=== PATIENT | female | born 1985 | race Two or more races ===

== ENCOUNTER 2018-03-28 09:04 | Emergency (ER) | payer MEDICAID ==
[~2018-03-28] VITALS: Ht 154.9 cm; Wt 56.2 kg
--- NOTE | 2018-03-28 09:06 | NUR ---
ED Nurse Note: Pt AAO x4, pale looking, fatigue due to heavy vaginal bleeding since 0700 this morning. Pt wet 4 pad completely. C/o dizziness since bleeding started, denied N/V. Abdominal cramp 2. VVS, remaining calm. Addendum: 03/28/18 at 1021 by [email or web address] ED Nurse Note: Pt AAO x4, 8 weeks , pale looking, fatigue due to heavy vaginal bleeding since 0700 this morning. Pt wet 4 pad completely with dark red blood and clotting. C/O dizziness since bleeding started, denied N/V. Abdominal cramp 04/30. VVS, remaining calm.
[2018-03-28 09:10] VITALS: BP 108/74
--- NOTE | 2018-03-28 09:45 | NUR ---
ED Nurse Note: Pt went down to US. Pt remains stable.
[2018-03-28 09:51] LABS: BASOPHILS % (AUTO) 1.4 % (0.0-2.0); EOSINOPHILS % (AUTO) 1.1 % (0.0-3.0); HEMATOCRIT 31.7 % (37.0-47.0); HEMOGLOBIN 11.1 G/DL (12.0-16.0); LYMPHOCYTES % (AUTO) 31.7 % (20.0-45.0); MEAN CORPUSCULAR VOLUME 95 FL (80-99); MONOCYTES % (AUTO) 4.3 % (1.0-10.0); NEUTROPHILS % (AUTO) 61.4 % (45.0-75.0); PLATELET COUNT 164 K/UL (150-450); RED BLOOD COUNT 3.33 M/UL (4.20-5.40); RED CELL DISTRIBUTION WIDTH 11.7 % (11.6-14.8); WHITE BLOOD COUNT 8.9 K/UL (4.8-10.8)
--- NOTE | 2018-03-28 09:58 | NUR ---
ED Nurse Note: Called [facility] for HCG result and Request for PHI form was filled out and signed by patient and it was faxed for request. waiting for the result to be faxed.
[2018-03-28 10:01] LABS: ANION GAP 12 mmol/L (5-15); BLOOD UREA NITROGEN 7 mg/dL (7-18); CALCIUM 8.8 MG/DL (8.5-10.1); CARBON DIOXIDE 19 MMOL/L (21-32); CHLORIDE 104 MMOL/L (98-107); CREATININE 0.6 MG/DL (0.55-1.30); POTASSIUM 4.4 MMOL/L (3.5-5.1); SODIUM 135 MMOL/L (136-145)
[2018-03-28 10:12] LABS: ALANINE AMINOTRANSFERASE 28 U/L (12-78); ALBUMIN 3.6 G/DL (3.4-5.0); ALBUMIN/GLOBULIN RATIO 1.1 (1.0-2.7); ALKALINE PHOSPHATASE 68 U/L (46-116); ASPARTATE AMINO TRANSFERASE 33 U/L (15-37); BILIRUBIN,DIRECT 0.2 MG/DL (0.0-0.3); BILIRUBIN,TOTAL 1.2 MG/DL (0.2-1.0)
--- NOTE | 2018-03-28 10:13 | NUR ---
ED Nurse Note: Received fax from [facility]. HCG level 8050 on 03/24/2018.
[2018-03-28 10:55] LABS: INR 1.1 (0.9-1.1)
[2018-03-28] MEDS ORDERED: Morphine Sulfate 4mg/ml Inj (IV/IM USE ONLY) ONE (10:56)
--- NOTE | 2018-03-28 10:56 | Diagnostic Imaging Report ---
Indication: Positive test. Vaginal bleeding. Quantitative beta-hCG pending Technique: Grayscale and duplex Doppler imaging of the pelvis performed utilizing a transabdominal scan and endovaginal scan. Comparison: None Findings: There is no IUP. There is heterogeneous material within the endocervical canal likely blood in a patient that is actively bleeding. There is no vascularity within the collection. Suggest follow-up. There is little to no free fluid. Both ovaries are seen and show dopplerable blood flow and appear normal. There is no adnexal mass identified. The uterus measures 13 x 5 x 7 cm. The right ovary is 2.8 x 2 x 2.5 cm. The left ovary is 2.8 x 1.9 x 2.6 cm. IMPRESSION: Lower uterine segment and endocervical blood noted. No IUP. Ectopic is not excludable although spontaneous or miscarriage is most likely. Correlate with serial quantitative beta-hCG and suggest ultrasound follow-up.
[2018-03-28 11:00] VITALS: BP 106/60
--- NOTE | 2018-03-28 11:00 | NUR ---
ED Nurse Note: Received verbal order for 4mg of morphine from Dr. Zuniga as she was doing pelvic exam. Pt was morning and was in pain. By the time the nurse override 4mg of morphine and brought to the room, pt stated that she no longer need the pain medication. Morphine was returned, witnessed by CN. Hailey
[2018-03-28] MEDS ORDERED: Morphine Sulfate 4mg/ml Inj (IV/IM USE ONLY) IVP ONE (11:15)
[2018-03-28 13:00] VITALS: BP 97/61
[2018-03-28 14:20] VITALS: BP 101/66
--- NOTE | 2018-03-28 14:23 | Emergency Room Report ---
History of Present Illness General Chief Complaint: Complications Source: Patient Present Illness Allergies: Coded Allergies: No Known Allergies (Unverified , 03/28/18) Patient History Last Menstrual Period: Jan 02 2018 Now: Yes : 1 Para: 0 Nursing Documentation-[facility] Past Medical History: No Stated History Physical Exam Vital Signs Date Time Temp Pulse Resp B/P (MAP) Pulse Ox O2 Delivery O2 Flow Rate FiO2 03/28/18 08:59 98.1 80 20 110/60 98 Room Air Medical Decision Making Diagnostic Impression: Primary Impression: Spontaneous miscarriage Laboratory Tests Test 03/28/18 09:30 03/28/18 10:40 White Blood Count 8.9 K/UL (4.8-10.8) Red Blood Count 3.33 M/UL (4.20-5.40) L Hemoglobin 11.1 G/DL (12.0-16.0) L Hematocrit 31.7 % (37.0-47.0) L Mean Corpuscular Volume 95 FL (80-99) Mean Corpuscular Hemoglobin 33.2 PG (27.0-31.0) H Mean Corpuscular Hemoglobin Concent 34.9 G/DL (32.0-36.0) Red Cell Distribution Width 11.7 % (11.6-14.8) Platelet Count 164 K/UL (150-450) Mean Platelet Volume 6.3 FL (6.5-10.1) L Neutrophils (%) (Auto) 61.4 % (45.0-75.0) Lymphocytes (%) (Auto) 31.7 % (20.0-45.0) Monocytes (%) (Auto) 4.3 % (1.0-10.0) Eosinophils (%) (Auto) 1.1 % (0.0-3.0) Basophils (%) (Auto) 1.4 % (0.0-2.0) Sodium Level 135 MMOL/L (136-145) L Potassium Level 4.4 MMOL/L (3.5-5.1) Chloride Level 104 MMOL/L (98-107) Carbon Dioxide Level 19 MMOL/L (21-32) L Anion Gap 12 mmol/L (5-15) Blood Urea Nitrogen 7 mg/dL (7-18) Creatinine 0.6 MG/DL (0.55-1.30) Estimate Glomerular Filtration Rate > 60 mL/min (>60) Glucose Level 118 MG/DL (74-106) H Calcium Level 8.8 MG/DL (8.5-10.1) Total Bilirubin 1.2 MG/DL (0.2-1.0) H Direct Bilirubin 0.2 MG/DL (0.0-0.3) Aspartate Amino Transferase (AST) 33 U/L (15-37) Alanine Aminotransferase (ALT) 28 U/L (12-78) Alkaline Phosphatase 68 U/L (46-116) Total Protein 7.0 G/DL (6.4-8.2) Albumin 3.6 G/DL (3.4-5.0) Globulin 3.4 g/dL Albumin/Globulin Ratio 1.1 (1.0-2.7) Human Chorionic Gonadotropin, Quant 3156 mIU/mL (1-6) H Prothrombin Time 11.2 SEC (9.30-11.50) Prothrombin Time INR 1.1 (0.9-1.1) PTT 21 SEC (23-33) L CT/MRI/US Diagnostic Results CT/MRI/US Diagnostic Results : Imaging Test Ordered: US pelvis Impression Lower uterine segment and endocervical blood noted. No IUP. Ectopic is not excludable although spontaneous or miscarriage is most likely. Correlate with serial quantitative beta-hCG and suggest ultrasound follow-up. Last Vital Signs Date Time Temp Pulse Resp B/P (MAP) Pulse Ox O2 Delivery O2 Flow Rate FiO2 03/28/18 08:59 98.1 80 20 110/60 98 Room Air Status: improved Disposition: HOME, SELF-CARE Referrals: NOT CHOSEN BRANDON/,REFERRING (PCP) Eloisa Myers DO Mar 28, 2018 14:23
[2018-03-28] MEDS ORDERED: IBUPROFEN800 MG ORAL (14:26)
--- NOTE | 2018-03-28 14:42 | NUR ---
ED Nurse Note: Pt reported unable to void x3. Reported to MD and MD said it is ok for the pt to go home without providing urine.
[2018-03-28 14:45] VITALS: BP 112/74
--- NOTE | 2018-03-28 14:45 | NUR ---
ED Nurse Note: Pt was cleared to be discharged by ERMD. Pt received discharge instruction and prescription with her . They both verbalized understanding. VSS, pt denied pain, ambulated to be discharged with her . ID band and IV removed.
== END 2018-03-28 15:00 | disposition home or self-care (01) ==
LOC: EDBD 09:04 → EMR 09:30
DX: O03.9 Complete or unspecified spontaneous abortion without complication (principal)
CPT/HCPCS: 36415; 76801; 80053; 82248; 84702; 85025; 85610; 85730; 86850; 86900; 86901; 88104; 96360; 99284